=== PATIENT | male | born 1990 | race Caucasian/White ===

== ENCOUNTER 2023-01-28 09:28 | Outpatient (CLI) | payer SELFPAY ==
[2023-01-28 19:23] LABS: H. PYLORIS ANTIGEN STL NEGATIVE (Negative)
[2023-02-01 17:09] LABS: GIARDIA LAMBLIA AG EIA Negative (Negative)
== END 2023-01-28 09:29 | disposition home or self-care (01) ==
LOC: LAB.N 09:28
PROVIDERS: ATTEND Nurse Practitioner
DX: R19.7 Diarrhea, unspecified (principal)
CPT/HCPCS: 87045; 87046; 87177; 87209; 87329; 87338; 87427; 87493